=== PATIENT | female | born 1955 | race Caucasian/White ===

== ENCOUNTER → 2024-01-31 | Outpatient (CLI) | payer MEDICARE, OTHER, SELFPAY ==
--- NOTE | 2024-01-31 11:20 | LES_PTH ---
PATIENT: BERNICE REAL LOC: [facility] U#:[id number] AGE/SX: 68/F ROOM: RE01/31/[address]: Dr. Ike Alexandre MD : [id number] BED: DIS: 01/31/2024 SPEC #: [id number] RECD: 01/31/24 15:17 STATUS: CONSTANTINE REHailey #: [id number] NATANAEL: 01/31/24 11:[address]: Ike Alexandre DEPT: SURGICAL PATHOLOGY RECD BY: Janell Avila Tissues: Skin of eyelid, NOS Procedures: Surgery Specimen Level IV HEADER OPERATION: Excisional biopsy of left upper eye lesion PRE-OP DIAGNOSIS: Left upper eye lesion TISSUE SUBMITTED: Left upper eye lesion MICROSCOPIC DIAGNOSIS Left upper eyelid lesion, biopsy: Consistent with verrucoid keratosis. AM 02/02/2024 MICROSCOPIC DESCRIPTION Slides are reviewed. GROSS DESCRIPTION Received in fixative is one container labeled with the patient's name and designated Left upper eye lesion. The specimen consists of a single irregular fragment of echevarria tissue measuring 0.2 x 0.2 x 0.1cm. The specimen is submitted in its entirety in one cassette. 02/01/2024 TC:5 CPT:66767
== END | disposition home or self-care (01) ==
LOC: LABSPEC 16:16
PROVIDERS: Referring Provider Ophthalmology; Visit Provider Ophthalmology
DX: L57.0 Actinic keratosis (principal)
CPT/HCPCS: 88305